=== PATIENT | female | born 1980 | race Two or more races ===

== ENCOUNTER 2020-05-22 10:45 | Inpatient (IN) | payer OTHER ==
[~2020-05-22] VITALS: Ht 160 cm; Wt 88.5 kg
[2020-05-22] MEDS ORDERED: CARVEDILOL25 MG PO (14:47)
[2020-05-22] MEDS ORDERED: SYNTHROID50 MCG PO (14:47)
[2020-05-22] MEDS ORDERED: HYDRALAZINE HC100 MG PO (14:48)
== END 2020-05-31 14:42 | DRG 735 ==
LOC: O/R 05-29 06:20 → OB/GYN 05-29 06:20
PROVIDERS: ADMIT Obstetrics & Gynecology Gynecologic Oncology; ATTEND Obstetrics & Gynecology Gynecologic Oncology
PROC: 0UT90ZZ Resection of Uterus, Open Approach (ICD-10-PCS; 2020-05-29)
PROC: 0UT70ZZ Resection of Bilateral Fallopian Tubes, Open Approach (ICD-10-PCS; 2020-05-29)
PROC: 0UT20ZZ Resection of Bilateral Ovaries, Open Approach (ICD-10-PCS; 2020-05-29)
PROC: 0DTU0ZZ Resection of Omentum, Open Approach (ICD-10-PCS; 2020-05-29)
PROC: 07TC0ZZ Resection of Pelvis Lymphatic, Open Approach (ICD-10-PCS; principal; 2020-05-29 17:45)
DX: D25.1 Intramural leiomyoma of uterus (principal); D25.2 Subserosal leiomyoma of uterus; N80.0 Endometriosis of uterus; N83.292 Other ovarian cyst, left side; N83.291 Other ovarian cyst, right side; Z20.828 Contact with and (suspected) exposure to other viral communicable diseases; R59.0 Localized enlarged lymph nodes